=== PATIENT | male | born 1965 | race Caucasian/White ===

== ENCOUNTER 2023-01-19 11:43 | Outpatient (CLI) | payer BC, MEDICARE, MEDICAID, SELFPAY ==
[2023-01-19 11:47] LABS: Abs Immature Grans 0.05 10^3/uL (0.0-0.06); Absolute Basophil Count 0.11 10^3/uL (0.0-0.2); Absolute Eosinophil Count 0.25 10^3/uL (0.0-0.7); Absolute Lymphocyte Count 2.89 10^3/uL (1.2-3.4); Absolute Monocyte Count 0.62 10^3/uL (0.1-0.8); Absolute Neutrophil Count 4.93 10^3/uL (1.2-6.7); Basophils % 1.2; Eosinophils % 2.8; HCT 42.3 % (40.0-50.0); HGB 14.2 g/dL (13.5-17.5); Immature Grans % 0.6; Lymphocytes % 32.7; MCH 29.6 pg (27.0-33.0); MCHC 33.6 % (32.0-36.0); MCV 88 fL (80-95); MPV 9.4 fL (8.0-11.0); Neutrophils % 55.7; Platelet Count 201 10^3/uL (130-400); RDW 12.2 % (11.8-14.1); RDW-SD 39.4 fL; WBC 8.85 10^3/uL (4.4-10.8)
[2023-01-19 12:00] LABS: ALT 115 U/L (16-63); AST 80 U/L (15-37); Albumin 3.8 g/dL (3.4-5.0); Alkaline Phosphatase 127 U/L (46-116); Anion Gap 9.8 mmol/L (3-11); BUN 20 mg/dL (7-18); CO2 26.2 mmol/L (21.0-32.0); Calcium 9.5 mg/dL (8.5-10.1); Chloride 100 mmol/L (98-107); Estimated GFR 87.24 (mL/min/1.73m2); Glucose 203 mg/dL (74-106); Potassium 4.3 mmol/L (3.5-5.1); Sodium 136 mmol/L (136-145); Total Protein 7.6 g/dL (6.4-8.2)
[2023-01-20 18:31] LABS: PSA, Ultrasensitive 5.4 ng/mL (<= 3.5)
[2023-01-23 17:30] LABS: Testosterone, Total 693 ng/dL (240-950)
== END 2023-01-19 11:44 | disposition home or self-care (01) ==
LOC: LBO 11:45
PROVIDERS: PCP Family Medicine; Visit Provider Radiology Radiation Oncology
DX: C61 Malignant neoplasm of prostate (principal)
CPT/HCPCS: 36415; 80053; 84153; 84403; 85025

== ENCOUNTER 2024-01-16 10:32 | Outpatient (CLI) | payer BC, MEDICARE, SELFPAY ==
[2024-01-16 09:02] LABS: Abs Immature Grans 0.04 10^3/uL (0.0-0.06); Absolute Basophil Count 0.07 10^3/uL (0.0-0.2); Absolute Eosinophil Count 0.54 10^3/uL (0.0-0.7); Absolute Lymphocyte Count 1.12 10^3/uL (1.2-3.4); Absolute Monocyte Count 0.46 10^3/uL (0.1-0.8); Absolute Neutrophil Count 3.25 10^3/uL (1.2-6.7); Basophils % 1.3 %; Eosinophils % 9.9 %; HCT 40.2 % (40.0-50.0); HGB 13.2 g/dL (13.5-17.5); Immature Grans % 0.7 %; Lymphocytes % 20.4 %; MCH 29.8 pg (27.0-33.0); MCHC 32.8 % (32.0-36.0); MCV 91 fL (80-95); MPV 9.4 fL (8.0-11.0); Monocytes % 8.4 %; Neutrophils % 59.3 %; Platelet Count 133 10^3/uL (130-400); RBC 4.43 10^6/uL (4.36-5.78); RDW 12.1 % (11.8-14.1); RDW-SD 40.1 fL; WBC 5.48 10^3/uL (4.4-10.8)
[2024-01-16 09:19] LABS: ALT 157 U/L (16-63); AST 143 U/L (15-37); Albumin 3.7 g/dL (3.4-5.0); Alkaline Phosphatase 202 U/L (46-116); Anion Gap 9.6 mmol/L (3-11); BUN 20 mg/dL (7-18); Bilirubin, Total 0.96 mg/dL (0.2-1.0); CO2 25.4 mmol/L (21.0-32.0); Chloride 103 mmol/L (98-107); Glucose 266 mg/dL (74-106); Potassium 4.3 mmol/L (3.5-5.1); Sodium 138 mmol/L (136-145); Total Protein 7.4 g/dL (6.4-8.2)
== END 2024-01-16 10:33 | disposition home or self-care (01) ==
PROVIDERS: PCP Family Medicine; Visit Provider Physician Assistant
DX: Z79.818 Long term (current) use of other agents affecting estrogen receptors and estrogen levels (principal)
CPT/HCPCS: 36415; 80053; 85025